=== PATIENT | male | born 1980 | race Caucasian/White ===

== ENCOUNTER → 2019-09-09 16:42 | Outpatient (CLI) | payer MEDICAID, SELFPAY ==
--- NOTE | ~2019-09-09 | XR_ITS ---
EXAMINATION:[id number] DATE: 09/09/2019 17:01 INDICATION: Generalized neck pain TECHNIQUE: AP, lateral, and odontoid views of the cervical spine are provided. COMPARISON: None FINDINGS: There is reversal of the normal cervical lordosis which can be positional or due to muscula r spasm. The odontoid is intact. No fracture is identified. Vertebral body heights and disk spaces ar e normal. Prevertebral soft tissues are normal. IMPRESSION: 1. Reversal of the normal cervical lordosis which can be positional or due to muscular spasm. No frac ture. Reviewed, dictated and finalized at location A. IMPRESSION: 1. Reversal of the normal cervical lordosis which can be positional or due to m uscular spasm. No fracture.
--- NOTE | ~2019-09-09 | XR_ITS ---
EXAMINATION: XR thoracic spine 2V DATE: 09/09/2019 17:01 INDICATION: Upper back pain TECHNIQUE: AP, lateral and lateral swimmer's views of the thoracic spine were obtained. COMPARISON: 07/29/2011 FINDINGS: There is no fracture, dislocation, or subluxation. The vertebral body heights, alignment, a nd intervertebral disc spaces are normal. The paravertebral soft tissues are unremarkable. IMPRESSION: 1. No acute osseous abnormality. Reviewed, dictated and finalized at location A.
== END ==
PROVIDERS: Visit Provider Nurse Practitioner Family
DX: S16.1XXA Strain of muscle, fascia and tendon at neck level, initial encounter (principal); X58.XXXA Exposure to other specified factors, initial encounter
CPT/HCPCS: 72040; 72070

== ENCOUNTER 2020-02-21 13:54 | Outpatient (CLI) | payer OTHER, SELFPAY ==
--- NOTE | ~2020-02-21 | MR_ITS ---
EXAMINATION: MR lumbar spine wo con DATE: 02/21/2020 14:49 INDICATION: Low back pain. TECHNIQUE: Magnetic resonance imaging (MRI) of the lumbar spine was performed without intravenous con trast. Sequences included sagittal T2-weighted FSE, sagittal T2-weighted FS FSE, sagittal T1-weighted FSE, and axial T2-weighted FSE. COMPARISON: None FINDINGS: There is 5 degrees levocurvature of lumbar spine. There are Schmorl's nodes at multiple lev els. Intervertebral disc heights are normal. The distal spinal cord signal intensity is normal. The c onus medullaris is at T12. The following disc levels are specifically discussed: L1-L2: The disc does not extend beyond the endplate margin. There is no facet joint osteoarthritis. T here is no neural foraminal stenosis. There is no central canal stenosis. L2-L3: The disc does not extend beyond the endplate margin. There is mild left facet joint osteoarthr itis. There is no neural foraminal stenosis. There is no central canal stenosis. L3-L4: The disc does not extend beyond the endplate margin. There is mild bilateral facet joint osteo arthritis. There is no neural foraminal stenosis. There is no central canal stenosis. L4-L5: The disc is mildly bulging. There is mild bilateral facet joint osteoarthritis. There is no ne ural foraminal stenosis. There is no central canal stenosis. L5-S1: There is a left central and foraminal zone protrusion. There is mild bilateral facet joint ost eoarthritis. There is mild left neural foraminal stenosis. There is no central canal stenosis. IMPRESSION: 1. Mild lumbar spondylosis. Reviewed, dictated and finalized at location A. IMPRESSION: 1. Mild lumbar spondylosis.
== END 2020-02-21 13:55 | disposition home or self-care (01) ==
LOC: ANHIMG 14:07
PROVIDERS: PCP Family Medicine; Visit Provider Nurse Practitioner Family
DX: M54.5 Low back pain (principal); M47.816 Spondylosis without myelopathy or radiculopathy, lumbar region
CPT/HCPCS: 72148